=== PATIENT | male | born 1985 | race Caucasian/White ===

== ENCOUNTER 2020-01-20 01:28 | Emergency (ER) | payer SELFPAY ==
[~2020-01-20] VITALS: Ht 160 cm; Wt 59.0 kg
[2020-01-20 01:30] VITALS: BP 137/90
--- NOTE | 2020-01-20 01:33 | NUR ---
TO LOBBY A/W BED AMBULATORY
--- NOTE | 2020-01-20 02:03 | NUR ---
Pt ambulated to bed 4.
--- NOTE | 2020-01-20 02:15 | NUR ---
PATIENT WOUNDS CLEANED BY NILAY VERDUGO
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
--- NOTE | 2020-01-20 02:22 | NUR ---
DR BALDERAS AWARE OF PT, AT BEDSIDE
--- NOTE | 2020-01-20 02:24 | NUR ---
[place] [employer] CALLED REGARDING PT STATUS, WILL SEND PERSON TO TALK WITH PATIENT
--- NOTE | 2020-01-20 02:45 | NUR ---
OFFICER SHELBY AT BEDSIDE
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
[2020-01-20] MEDS ORDERED: HYDROcodone/APAP 5/325 MG 1 TAB TAB PO ONE (03:50)
[2020-01-20 04:10] VITALS: BP 125/89
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
== END 2020-01-20 04:10 | disposition home or self-care (01) ==
LOC: MED 01:28
DX: S01.81XA Laceration without foreign body of other part of head, initial encounter (principal); S80.02XA Contusion of left knee, initial encounter; S80.01XA Contusion of right knee, initial encounter; X58.XXXA Exposure to other specified factors, initial encounter; Y93.89 Activity, other specified; Y92.89 Other specified places as the place of occurrence of the external cause; Y99.8 Other external cause status
CPT/HCPCS: 90471; 90715; 99283